=== PATIENT | female | born 1965 | race Hispanic/Latino ===

== ENCOUNTER 2019-09-04 16:16 | Emergency (ER) | payer OTHER ==
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
[2019-09-04 16:56] LABS: Basophils % (Auto) 0.5 % (0.0-1.8); Eosinophils % (Auto) 0.2 % (0.0-4.3); Hematocrit 41.9 % (30.3-42.9); Hemoglobin 14.5 gm/dl (10.1-14.3); Lymphocytes # (Auto) 0.8 K/mm3 (1.2-5.4); Lymphocytes % (Auto) 9.2 % (13.4-35.0); Mean Corpuscular HGB Conc 35 % (30-34); Mean Corpuscular Volume 95 fl (79-97); Monocytes # (Auto) 0.9 K/mm3 (0.0-0.8); Monocytes % (Auto) 10.2 % (0.0-7.3); Platelet Count 371 K/mm3 (140-440); Red Blood Count 4.41 M/mm3 (3.65-5.03); Red Cell Distribution Width 13.3 % (13.2-15.2)
[2019-09-04 17:06] LABS: INR 0.94 (0.87-1.13)
[2019-09-04 17:07] LABS: Partial Thromboplastin Time 27.6 Sec. (24.2-36.6)
[2019-09-04 17:14] LABS: Alanine Aminotransferase 129 units/L (7-56); Albumin 4.8 g/dL (3.9-5); BUN/Creatinine Ratio 17; Blood Urea Nitrogen 10 mg/dL (7-17); Calcium 9.6 mg/dL (8.4-10.2); Hemolysis Index 50
[2019-09-04] MEDS ORDERED: NACL 0.9% 1000 ML 1,000 ML IV ONE (17:26)
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
[2019-09-04] MEDS ORDERED: K-DUR PO ONE (19:50)
[2019-09-04] MEDS ORDERED: MAGNESIUM SULFATE 2GM/50ML 2 GM/50 ML BAG IV ONE (19:50)
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
[2019-09-04 21:29] LABS: Bilirubin,Urine NEG (Negative); Blood,Urine NEG (Negative); Color,Urine Yellow (Yellow); Mucus,Urine FEW /HPF; Protein,Urine <15 mg/dL mg/dL (Negative); Urobilinogen,Urine < 2.0 mg/dL (<2.0)
[2019-09-04 21:55] LABS: Cannabinoid Screen,Urine PRESUMPTIVE NEGATIVE; Cocaine Screen,Urine PRESUMPTIVE NEGATIVE; Methadone Screen,Urine PRESUMPTIVE NEGATIVE; Opiate Screen,Urine PRESUMPTIVE NEGATIVE
[2019-09-04 22:13] LABS: Amphetamine Screen,Urine PRESUMPTIVE POSITIVE; Benzodiazepines Screen,Urine PRESUMPTIVE POSITIVE
[2019-09-04] MEDS ORDERED: NON-FORMULARY (Temazepam [Temazepam] 30 MG) PO PRN (23:28)
[2019-09-04] MEDS ORDERED: RESTORIL PO PRN (23:35)
[2019-09-05] MEDS: AUGMENTIN 875 MG PO SCH ×4 (01:35→23:08)
[2019-09-05] MEDS: XANAX PO PRN ×2 (03:40→09:48)
[2019-09-05] MEDS ORDERED: TENORMIN ONE (09:13)
[2019-09-05] MEDS: TENORMIN PO SCH (09:29)
[2019-09-05] MEDS: K-DUR PO SCH (09:29)
[2019-09-05] MEDS: THALITONE PO SCH (09:29)
[2019-09-05] MEDS ORDERED: NON-FORMULARY (Atenolol/Chlorthalidone [Tenoretic 50-25] 1 TAB) PO SCH (10:00)
[2019-09-05 10:26] LABS: Alanine Aminotransferase 162 units/L (7-56)
[2019-09-05] MEDS ORDERED: ATIVAN ONE ×2 (10:31→10:37)
[2019-09-05] MEDS ORDERED: NACL 0.9% 1000 ML 1,000 ML ONE (10:32)
[2019-09-05] MEDS ORDERED: KEPPRA 1,000 MG/NS 0.75% 100ML 1,000 MG/100 ML BAG IV ONE ×2 (10:32→10:37)
[2019-09-05] MEDS ORDERED: ATIVAN IV ONE (10:38)
[2019-09-05] MEDS ORDERED: ATIVAN IV PRN ×2 (10:45)
[2019-09-05] MEDS ORDERED: ZOFRAN IV ONE (11:13)
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
[2019-09-05] MEDS: ATIVAN IV PRN ×2 (11:26→23:09)
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
[2019-09-06] MEDS: ATIVAN IV PRN ×4 (04:18→11:45)
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
[2019-09-06] MEDS: AUGMENTIN 875 MG PO SCH (10:35)
[2019-09-06] MEDS: TENORMIN PO SCH (10:35)
[2019-09-06] MEDS: K-DUR PO SCH (10:35)
[2019-09-06] MEDS: THALITONE PO SCH (10:40)
[2019-09-07] MEDS: AUGMENTIN 875 MG PO SCH ×3 (00:01→22:00)
[2019-09-07] MEDS: ATIVAN IV PRN (03:00)
[2019-09-07 07:51] LABS: Chol/HDL Ratio 1.69 %
[2019-09-07] MEDS: K-DUR PO SCH (10:33)
[2019-09-07] MEDS: TENORMIN PO SCH (10:34)
[2019-09-07] MEDS: THALITONE PO SCH (10:36)
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
[2019-09-08] MEDS ORDERED: IBUPROFEN PO ONE (00:47)
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
[2019-09-08] MEDS ORDERED: BENADRYL PO SCH (10:00)
[2019-09-08 10:26] LABS: Alanine Aminotransferase 322 units/L (7-56); Albumin 4.2 g/dL (3.9-5); BUN/Creatinine Ratio 17; Blood Urea Nitrogen 10 mg/dL (7-17); Calcium 9.8 mg/dL (8.4-10.2); Hemolysis Index 8
[2019-09-08] MEDS ORDERED: K-DUR PO ONE (11:28)
[2019-09-08] MEDS: GEODON PO SCH ×2 (12:06→22:00)
[2019-09-08] MEDS: K-DUR PO SCH (12:07)
[2019-09-08] MEDS: THALITONE PO SCH (12:10)
[2019-09-08] MEDS: TENORMIN PO SCH (12:15)
[2019-09-08] MEDS: AUGMENTIN 875 MG PO SCH ×2 (12:30→22:00)
--- NOTE | 2019-09-08 12:51 | Ultrasound Report ---
ULTRASOUND ABDOMEN, COMPLETE INDICATION: elevated lft's. COMPARISON: None available. FINDINGS: Pancreas: Normal. Abdominal Aorta: Normal. IVC: Normal. Liver: Only measures 12 cm but does show increased echogenicity. Gallbladder: Normal. Bile ducts: Normal. Common Bile Duct measures 5.7 mm. Right Kidney: Normal. Left Kidney: Normal. Spleen: Normal. Free fluid: None. Additional Findings: None. IMPRESSION: 1. Mild fatty liver. Otherwise negative study. Signer Name: Michael Morris MD Signed: 09/08/2019 12:46 PM Workstation Name: [id number]
[2019-09-08 13:59] LABS: Hepatitis C Virus Antibody Non-Reactive (NonReactive)
[2019-09-08 14:28] LABS: Hepatitis B Surface Antigen Non-Reactive (Negative)
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
[2019-09-09] MEDS ORDERED: IBUPROFEN PO ONE ×2 (10:50→11:20)
[2019-09-09] MEDS: K-DUR PO SCH (11:00)
[2019-09-09] MEDS: GEODON PO SCH ×2 (11:00→21:45)
[2019-09-09] MEDS: THALITONE PO SCH (11:00)
[2019-09-09] MEDS: AUGMENTIN 875 MG PO SCH ×2 (11:00→21:45)
[2019-09-09] MEDS: TENORMIN PO SCH (11:18)
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
[2019-09-10] MEDS: TENORMIN PO SCH (11:00)
[2019-09-10] MEDS: THALITONE PO SCH (11:00)
[2019-09-10] MEDS: GEODON PO SCH (11:00)
[2019-09-10] MEDS: K-DUR PO SCH (11:00)
[2019-09-10] MEDS: AUGMENTIN 875 MG PO SCH (11:00)
[2019-09-10] MEDS ORDERED: IBUPROFEN PO ONE ×2 (11:25→11:26)
[2019-09-10 11:42] VITALS: BP 128/96
== END 2019-09-10 16:38 | disposition home or self-care (01) ==
LOC: ED 16:16 → EEVIPCON 16:16 → ED 09-10 16:38
DX: S00.83XA Contusion of other part of head, initial encounter (principal); H11.31 Conjunctival hemorrhage, right eye; R41.82 Altered mental status, unspecified; I10 Essential (primary) hypertension; Z79.899 Other long term (current) drug therapy; Y04.1XXA Assault by human bite, initial encounter; Y93.89 Activity, other specified; Y92.89 Other specified places as the place of occurrence of the external cause; Y99.8 Other external cause status
CPT/HCPCS: 36415; 70450; 70486; 71045; 72125; 76700; 80053; 80061; 80074; 80307; 81001; 82140; 82962; 83036; 83735; 84450; 84460; 84484; 85025; 85610; 85730; 93005; 96361; 96365; 96367; 96375; 96376; 99285; J1953; J2060; J2405; J3475; J7030; 80320; G0480; J3246